=== PATIENT | female | born 1975 | race Caucasian/White ===

== ENCOUNTER 2022-12-30 18:39 | Emergency (ER) | payer OTHER ==
[2022-12-30] VITALS (8 sets, daily range): BP systolic 105–133; BP diastolic 77–92
== END 2022-12-30 20:43 | disposition home or self-care (01) | DRG 605 ==
LOC: ED 18:39
DX: S40.022A Contusion of left upper arm, initial encounter (principal); S40.021A Contusion of right upper arm, initial encounter; V86.55XA Driver of 3- or 4- wheeled all-terrain vehicle (ATV) injured in nontraffic accident, initial encounter